=== PATIENT | female | born 1965 | race Caucasian/White ===

== ENCOUNTER 2021-06-27 09:59 | Emergency (ER) | payer MEDICARE ==
[~2021-06-27] VITALS: Ht 160 cm; Wt 69.4 kg
[2021-06-27] MEDS ORDERED: METHOTREXATE S2.5 M1 PO (10:22)
[2021-06-27] MEDS ORDERED: PROPRANOLOL HCL40 M1 PO (10:22)
[2021-06-27] MEDS ORDERED: MELATONIN3 MG PO (10:23)
[2021-06-27] MEDS ORDERED: ROSUVASTATIN CA10 MG PO (10:23)
[2021-06-27] MEDS ORDERED: FLUOXETINE HCL40 MG PO (10:24)
[2021-06-27] MEDS ORDERED: VITAMIN D3125 MC1 PO (10:24)
[2021-06-27] MEDS ORDERED: NATURE'S BLEND F1 MG PO (10:25)
[2021-06-27] MEDS ORDERED: OMEPRAZOLE40 MG PO (10:25)
[2021-06-27] MEDS ORDERED: LEVOTHYROXINE75 MCG PO (10:25)
[2021-06-27 11:44] LABS: BASO % 0.7 % (0.0-1.0); EOS % 0.2 % (1.0-4.0); HEMATOCRIT 31.8 % (37.0-47.0); LYMPH # 0.7 10*3/uL (1.3-4.4); MEAN CELL VOLUME 83.7 fl (81.0-99.0); MEAN CORPUSCULAR HGB 26.3 pg (27.0-31.0); MEAN CORPUSCULAR HGB CONC 31.4 g/dl (33.0-37.0); MEAN PLATELET VOLUME 10.8 fl (9.6-12.3); MONO # 0.5 10*3/uL (0.1-1.0); MONO % 10.5 % (3.0-9.0); NEUT # 3.2 10*3/uL (2.3-7.9); NEUT % 72.3 % (47.0-73.0); PLATELET COUNT AUTOMATED 179 10*3/uL (130-400); RED CELL DISTRI WIDTH 19.8 % (0-14.5); WHITE BLOOD COUNT 4.5 10*3/uL (4.8-10.8)
[2021-06-27 12:04] LABS: ALBUMIN 3.2 gm/dl (3.1-4.5); ALKALINE PHOSPHATASE 72 U/L (45-117); BUN 16 mg/dl (7-24); CHLORIDE 107 mmol/L (98-107); CPK 66 U/L (26-192); CREATININE 0.69 mg/dL (0.55-1.02); POTASSIUM 3.5 mmol/L (3.5-5.1); SGOT/AST 64 IU/L (3-35); SGPT/ALT 51 U/L (12-78); SODIUM 139 mmol/L (136-145); TOTAL PROTEIN 6.9 gm/dL (6.4-8.2)
[2021-06-27 12:07] LABS: TROPONIN I < 0.015 ng/ml (<0.045)
== END 2021-06-27 13:47 | disposition home or self-care (01) ==
LOC: ED 09:59
PROVIDERS: Emergency Medicine
DX: U07.1 COVID-19 (principal); I10 Essential (primary) hypertension; Z88.6 Allergy status to analgesic agent; Z79.899 Other long term (current) drug therapy